=== PATIENT | female | born 1990 ===

== ENCOUNTER 2025-07-14 07:00 | Inpatient (IN) | payer OTHER ==
[~2025-07-14] VITALS: Ht 157.5 cm; Wt 49.0 kg
[2025-07-14 08:05] LABS: URINE APPEARANCE Clear; URINE BILIRRUBIN Negative (NEGATIVE); URINE BLOOD Small; URINE COLOR Yellow; URINE GLUCOSE Negative (NEGATIVE); URINE KETONE Negative (NEGATIVE); URINE LEUKOCYTE Trace; URINE NITRATE Negative; URINE PROTEIN Negative (NEGATIVE); URINE UROBILINOGEN 0.2 E.U./dl
[2025-07-14 08:06] LABS: BASO % 0.5 % (0.1-1.2); EOS # 0.37 (0.04-0.54); EOS % 8.7 % (0.7-7.0); LYMPH # 1.00 (1.18-3.74); LYMPH % 23.6 % (19.3-53.1); MEAN PLATELET VOLUME 9.80 fl (9.4-12.4); MONO # 0.58 (0.24-0.82); NEUT # 2.25 (1.56-6.13); NEUT % 53.3 % (34.0-71.1); RED CELL DISTRIBUTION WIDTH 11.5 % (11.6-14.4)
[2025-07-14 08:07] LABS: URINE BACTERIA 67.1 uL (0.0-1933); URINE EPITHELIAL CELLS 6.6 uL (0.0-38.8); URINE RBC 9.9 uL (0.0-20.8); URINE WBC 16.2 uL (0.0-23.2)
[2025-07-14 08:08] LABS: MONO % 13.7 % (4.7-12.5)
[2025-07-14 08:12] LABS: URINE CAST 0.00 uL (0.0-1.40)
[2025-07-14 08:48] LABS: INR 1.05
[2025-07-14 08:55] VITALS: BP 128/75
[2025-07-14 08:55] LABS: ALT/SGPT 29.0 U/L (12-78); AST/SGOT 18.0 U/L (15-37); BILIRUBIN TOTAL 1.0 mg/dL (0.3-1.2); BUN CREA RATIO 12.0 (7.0-25.0); CREATININE SERUM 0.67 mg/dL (0.55-1.02); GFR 100.16; GLOBULINA 3.1 G/DL (2.4-3.5); GLUCOSE FASTING 89.0 mg/dL (65-100); OSMOLALITY SERUM 283.0 MOSM/KG (275-295)
[2025-07-14 08:56] VITALS: BP 137/86
[2025-07-30] MEDS ORDERED: METRONIDAZOLE/SODIUM CHLORIDE 500 MG/100 ML PIGGYBACK IV ONE (07:21)
[2025-07-30] MEDS ORDERED: POVIDONE-IODINE 118 ML BOTT TOP ONE (07:33)
[2025-07-30] MEDS ORDERED: CHLORHEXIDINE GLUCONATE 120 ML BOTTLE TOP ONE (07:33)
[2025-07-30] MEDS ORDERED: BUPIVACAINE HCL/MPF 0.5% 30ML VIAL ONE (07:33)
[2025-07-30] MEDS ORDERED: LIDOCAINE HCL 1%/EPINEPHRINE 20ML VIAL IJ ONE (07:34)
[2025-07-30] MEDS ORDERED: CEFAZOLIN SODIUM 1,000 MG VIAL IV SCH (09:30)
[2025-07-30] MEDS ORDERED: SURGIFLO APPLICATOR 1 EACH APPL TOP ONE (10:49)
[2025-07-30] MEDS ORDERED: HEMOSTATIC MATRIX 1 KIT KIT TOP ONE (10:49)
[2025-07-30] MEDS ORDERED: SUGAMMADEX SODIUM 200 MG/2 ML VIAL IV ONE (11:14)
[2025-07-30] MEDS ORDERED: RINGERS SOLUTION,LACTATED 1,000 ML IV SCH (14:45)
[2025-07-30] MEDS ORDERED: OxyCODONE HCL 5 MG TABLET (ROXICODONE) PO PRN (14:45)
[2025-07-30] MEDS ORDERED: DOCUSATE SODIUM 100MG CAP PO SCH (17:00)
[2025-07-30 17:29] VITALS: BP 137/86
[2025-07-30] MEDS ORDERED: ONDANSETRON HCL 2 MG/ML VIAL IV SCH (21:00)
[2025-07-31 00:36] VITALS: BP 116/76
[2025-07-31 08:00] VITALS: BP 110/73
[2025-07-31 12:06] LABS: BASO % 0.2 % (0.1-1.2); EOS # 0.12 (0.04-0.54); EOS % 1.2 % (0.7-7.0); LYMPH # 0.89 (1.18-3.74); LYMPH % 8.6 % (19.3-53.1); MEAN PLATELET VOLUME 9.80 fl (9.4-12.4); MONO # 0.90 (0.24-0.82); MONO % 8.7 % (4.7-12.5); NEUT # 8.40 (1.56-6.13); NEUT % 81.0 % (34.0-71.1); RED CELL DISTRIBUTION WIDTH 11.8 % (11.6-14.4)
[2025-07-31 12:47] LABS: ALT/SGPT 18.0 U/L (12-78); AST/SGOT 13.0 U/L (15-37); BILIRUBIN TOTAL 0.54 mg/dL (0.3-1.2); BUN CREA RATIO 9.0 (7.0-25.0); CREATININE SERUM 0.53 mg/dL (0.55-1.02); GFR 131.27; GLOBULINA 2.8 G/DL (2.4-3.5); GLUCOSE FASTING 104.0 mg/dL (65-100); OSMOLALITY SERUM 284.0 MOSM/KG (275-295)
[2025-07-31] MEDS ORDERED: OXYCODONE HCL5 MG PO (14:01)
[2025-07-31] MEDS ORDERED: IBUPROFEN800 MG PO (14:01)
[2025-07-31] MEDS ORDERED: COLACE100 MG PO (14:01)
[2025-07-31] MEDS ORDERED: METOCLOPRAMIDE HCL 10 MG TABLET PO PRN (15:00)
[2025-07-31] MEDS ORDERED: GABAPENTIN 300 MG CAPSULE PO SCH (17:00)
[2025-07-31 17:08] VITALS: BP 130/83
[2025-07-31] MEDS ORDERED: DIATRIZOATE MEGLUMINE, SODIUM 30 ML BOTTLE PO ONE (18:45)
[2025-08-01] VITALS: BP 103/66
[2025-08-01 07:47] LABS: BASO % 0.4 % (0.1-1.2); EOS # 0.30 (0.04-0.54); EOS % 4.4 % (0.7-7.0); LYMPH # 0.99 (1.18-3.74); LYMPH % 14.6 % (19.3-53.1); MEAN PLATELET VOLUME 10.00 fl (9.4-12.4); MONO # 0.97 (0.24-0.82); NEUT # 4.47 (1.56-6.13); NEUT % 66.2 % (34.0-71.1); RED CELL DISTRIBUTION WIDTH 11.7 % (11.6-14.4)
[2025-08-01 07:56] LABS: MONO % 14.3 % (4.7-12.5)
[2025-08-01 09:13] VITALS: BP 122/79
[2025-08-01] MEDS ORDERED: GABAPENTIN300 MG PO (13:26)
[2025-08-01] MEDS ORDERED: METOCLOPRAMIDE10 MG PO (13:26)
== END 2025-08-01 14:01 | disposition home or self-care (01) | DRG 743 ==
LOC: SURH 07-21 07:00 → O/R 07-23 06:00 → SURH 07-23 06:00 → OB/GYN 07-30 06:00 → O/R 07-30 06:00 → OB/GYN 07-30 14:27
PROVIDERS: ADMIT Student in an Organized Health Care Education/Training Program; ATTEND Student in an Organized Health Care Education/Training Program
PROC: 0UT74ZZ Resection of Bilateral Fallopian Tubes, Percutaneous Endoscopic Approach (ICD-10-PCS; 2025-07-30)
PROC: 0UT24ZZ Resection of Bilateral Ovaries, Percutaneous Endoscopic Approach (ICD-10-PCS; 2025-07-30)
PROC: 0DNW4ZZ Release Peritoneum, Percutaneous Endoscopic Approach (ICD-10-PCS; 2025-07-30)
PROC: 0DBW4ZZ Excision of Peritoneum, Percutaneous Endoscopic Approach (ICD-10-PCS; 2025-07-30)
PROC: 0UBF4ZZ Excision of Cul-de-sac, Percutaneous Endoscopic Approach (ICD-10-PCS; 2025-07-30)
PROC: 0TJB8ZZ Inspection of Bladder, Via Natural or Artificial Opening Endoscopic (ICD-10-PCS; 2025-07-30)
PROC: 0UT94ZZ Resection of Uterus, Percutaneous Endoscopic Approach (ICD-10-PCS; principal; 2025-07-30 07:00)
DX: D25.1 Intramural leiomyoma of uterus (principal); N83.02 Follicular cyst of left ovary; N83.01 Follicular cyst of right ovary; N32.9 Bladder disorder, unspecified; R10.20 Pelvic and perineal pain unspecified side; N80.9 Endometriosis, unspecified; Z85.3 Personal history of malignant neoplasm of breast; Z15.02 Genetic susceptibility to malignant neoplasm of ovary; N80.352 Endometriosis of the left pelvic sidewall, unspecified depth; N80.319 Endometriosis of the anterior cul-de-sac, unspecified depth

== ENCOUNTER 2025-07-27 10:42 | Outpatient (CLI) | payer OTHER | END 2025-07-27 14:59 | disposition home or self-care (01) | LOC: LAB 10:42 | PROVIDERS: ATTEND Student in an Organized Health Care Education/Training Program | DX: D64.9 Anemia, unspecified (principal); E03.8 Other specified hypothyroidism; N95.1 Menopausal and female climacteric states; I10 Essential (primary) hypertension; C51.9 Malignant neoplasm of vulva, unspecified; N30.00 Acute cystitis without hematuria; E83.51 Hypocalcemia; A64 Unspecified sexually transmitted disease; N39.0 Urinary tract infection, site not specified; R97.8 Other abnormal tumor markers; R79.89 Other specified abnormal findings of blood chemistry; E55.9 Vitamin D deficiency, unspecified; A60.9 Anogenital herpesviral infection, unspecified; Z12.11 Encounter for screening for malignant neoplasm of colon ==